=== PATIENT | male | born 1970 | race Caucasian/White ===

== ENCOUNTER 2017-04-23 11:28 | Emergency (ER) | payer OTHER ==
[2017-04-23 11:29] VITALS: BP 187/121; PULSE 80; RESP 16; TEMP 98.2; O2SAT 100
[2017-04-23] MEDS ORDERED: LISI-515 PO (12:27)
[2017-04-23] MEDS ORDERED: TOPI100 PO (12:27)
[2017-04-23] MEDS ORDERED: SERO400T PO (12:27)
--- NOTE | 2017-04-23 12:29 | PD ---
HPI Chief Complaint: Hypertension Time Seen by Provider: 12:22 Travel History International Travel<30 days: No Contact w/Intl Traveler<30days: No Traveled to known affect area: No History of Present Illness HPI 46-year-old male presents to emergency department, [facility], for increased blood pressure reading. He went to the [facility] to get his blood pressure medications and medications for his bipolar disorder refilled and they sent him to the ER because of his elevated blood pressure. He is asymptomatic. He denies chest pain, shortness of breath, headache, lightheadedness, dizziness, near syncopal, nausea, vomiting, blurred vision, diaphoresis. He last took his blood pressure medication 6 days ago. He takes hydrochlorothiazide 12.5 mg/ lisinopril 20 mg 2 tablets at hour of sleep; this was verified by calling the [facility]. No known aggravating or relieving factors. Primary care provider is [facility]. No known allergies. History of hypertension and bipolar disorder. Has no other medical complaints. No other modifying factors or associated signs or symptoms. PFSH Past Medical History Bipolar Disorder: Yes Cardiovascular Problems: Yes (HTN) Hypertension: Yes Psychiatric: Yes Tetanus Vaccination: < 5 Years Past Surgical History Surgical History: No Previous Surgery Social History Alcohol Use: No Tobacco Use: No Substance Use: No Allergies-Medications (Allergen,Severity, Reaction): Coded Allergies: No Known Allergies (Unverified , 04/23/17) Reported Meds & Prescriptions Reported Meds & Active Scripts Active Lisinopril-Hctz 20-12.5 mg Tab (Lisinopril/Hydrochlorothiazide) 20 Mg-12.5 Mg Tablet 2 Tab PO HS 30 Days Reported Topamax (Topiramate) 100 Mg Tab 100 Mg PO HS Lisinopril 20 Mg Tab 20 Mg PO BID Seroquel (Quetiapine Fumarate) 400 Mg Tab 400 Mg PO HS Review of Systems Except as stated in HPI: all other systems reviewed are Neg Physical Exam Narrative GENERAL: Well-nourished, well-developed male patient, in no acute distress SKIN: Warm and dry. HEAD: Atraumatic. Normocephalic. EYES: Pupils equal and round. No scleral icterus. No injection or drainage. ENT: Mucosa pink and moist. Airway patent. NECK: Trachea midline. CARDIOVASCULAR: Regular rate and rhythm. No murmur appreciated. RESPIRATORY: No accessory muscle use. Breath sounds clear and equal bilaterally. No retractions or tachypnea. GASTROINTESTINAL: Abdomen soft, non-tender, nondistended. Positive bowel sounds. No hepato-splenomegaly, or palpable masses. No guarding. MUSCULOSKELETAL: No obvious deformities. No clubbing. No cyanosis. No edema. NEUROLOGICAL: Awake and alert. Oriented 3. No obvious cranial nerve deficits. Motor grossly within normal limits. Normal speech. PSYCHIATRIC: Appropriate mood and affect; insight and judgment normal. Data Data Last Documented VS Vital Signs Date Time Temp Pulse Resp B/P (MAP) Pulse Ox O2 Delivery O2 Flow Rate FiO2 04/23/17 11:29 98.2 80 16 187/121 (143) 100 Orders Orders Hydrochlorothiazide (Hydrodiuril) (04/23/17 12:45) Lisinopril (Prinivil) (04/23/17 12:45) MDM Medical Decision Making Medical Screen Exam Complete: Yes Emergency Medical Condition: Yes Medical Record Reviewed: Yes Differential Diagnosis Hypertension, high blood pressure reading, medication refill, medical clearance Narrative Course 46-year-old male with history of hypertension sent from the [facility] with a high blood pressure reading. He last took his medication 6 days ago. He went to the [facility] for medication refills but they told him he needs to come to the ER to get his blood pressure lowered. He is asymptomatic. I spoke on the phone with the [facility] pharmacy and verified his medication dosage. Lisinopril 25 mg and hydrochlorothiazide 40 mg ordered and administered in the ER. Patient provided a prescription for medication refill for lisinopril/ hydrochlorothiazide. Instructed patient to follow-up at [facility]. Instructed patient to follow up with primary care provider. Patient verbalizes understanding and agreement with treatment plan. Patient is medically cleared and stable for discharge. Discussed reasons to return to the emergency department. Patient agrees with treatment plan. The patients vital signs are stable and the patient is stable for outpatient follow-up and treatment. Patient discharged home, stable and in no acute distress. Diagnosis Primary Impression: High blood pressure Qualified Codes: I10 - Essential (primary) hypertension Referrals: Primary Care Physician Patient Instructions: General Instructions, Hypertension (ED), Medication Refill, ED Additional Instructions: Take blood pressure medications as prescribed Follow-up with your primary care provider Return to the emergency department immediately with symptoms of increased blood pressure, taken only if you are experiencing severe chest pain, severe headache , confusion, blurred vision, nausea and vomiting, shortness of breath, seizures Med/Other Pt SpecificInfo: Prescription(s) given Scripts Lisinopril/Hydrochlorothiazide (Lisinopril-Hctz 20-12.5 mg Tab) 20 Mg-12.5 Mg Tablet 2 TAB PO HS for Blood Pressure Management for 30 Days Prov: Haleigh Moore 04/23/17 Disposition: 01 DISCHARGE HOME Condition: Stable Haleigh Moore Apr 23, 2017 12:29
[2017-04-23] MEDS ORDERED: LISINOPRIL 20 MG TAB PO SCH (12:45)
[2017-04-23] MEDS ORDERED: HYDROCHLOROTHIAZIDE 25 MG TAB PO ONE (12:45)
[2017-04-23] MEDS ORDERED: LISI20TA PO (12:47)
[2017-04-23 13:58] VITALS: BP 161/104
[2017-04-23 13:59] VITALS: BP 165/108; PULSE 68; RESP 20
== END 2017-04-23 14:07 | disposition home or self-care (01) ==
LOC: NEPD 11:28
DX: I10 Essential (primary) hypertension (principal); F31.9 Bipolar disorder, unspecified; Z79.899 Other long term (current) drug therapy
CPT/HCPCS: 99283

== ENCOUNTER 2017-05-03 04:31 | Observation (INO) | payer OTHER ==
[~2017-05-03] VITALS: Ht 175.3 cm; Wt 104.5 kg
[2017-05-03] VITALS (7 sets, daily range): BP systolic 106–144; BP diastolic 64–90; PULSE 82–110; RESP 14–20; TEMP 97.5–98.1; O2SAT 98–99
[~2017-05-03 04:31] MED LIST: LISI-515 PO; LISI20TA PO; SERO400T PO; TOPI100 PO
[2017-05-03] MEDS ORDERED: VIAG50TA PO (05:04)
[2017-05-03] MEDS ORDERED: GERD (05:04)
[2017-05-03] MEDS ORDERED: SODIUM CHLORIDE 0.9% FLUSH 10 ML FLUSH IVF PRN (05:15)
--- NOTE | 2017-05-03 05:28 | RADRPT ---
EXAM DATE/TIME: 05/03/2017 05:09 [place] COMPARISON: No previous studies available for comparison. INDICATIONS : Elevated BP and dizziness x 1 day MEDICAL HISTORY : Hypertension. SURGICAL HISTORY : None. ENCOUNTER: Initial ACUITY: 1 day PAIN SCORE: 8/10 LOCATION: Bilateral chest FINDINGS: A single view of the chest demonstrates the lungs to be symmetrically aerated without evidence of mas s, infiltrate or effusion. The cardiomediastinal contours are unremarkable. Osseous structures are intact. CONCLUSION: The lungs are clear. Manuel Deluca MD on May 03, 2017 at 5:27 Board Certified Radiologist. This report was verified electronically.
[2017-05-03 05:36] LABS: AUTOMATED NEUTROPHIL # 5.5 TH/MM3 (1.8-7.7); BASOPHIL % 0.5 % (0.0-2.0); EOSINOPHIL # 0.4 TH/MM3 (0-0.4); EOSINOPHIL % 5.1 % (0.0-4.0); HEMATOCRIT 38.5 % (39.0-51.0); HEMOGLOBIN 12.9 GM/DL (13.0-17.0); LYMPH % 24.4 % (9.0-44.0); LYMPHOCYTE # 2.1 TH/MM3 (1.0-4.8); MEAN CELL VOLUME 85.1 FL (80.0-100.0); MEAN CORPUSCULAR HEMOGLOBIN 28.5 PG (27.0-34.0); MEAN CORPUSCULAR HGB CONC 33.5 % (32.0-36.0); MEAN PLATELET VOLUME 8.1 FL (7.0-11.0); MONO % 5.1 % (0.0-8.0); MONOCYTE # 0.4 TH/MM3 (0-0.9); NEUT % 64.9 % (16.0-70.0); PLATELET COUNT 232 TH/MM3 (150-450); RED BLOOD COUNT 4.52 MIL/MM3 (4.50-5.90); RED CELL DISTRIBUTION WIDTH 17.8 % (11.6-17.2); WHITE BLOOD COUNT 8.5 TH/MM3 (4.0-11.0)
[2017-05-03 05:49] LABS: ALBUMIN 3.5 GM/DL (3.4-5.0); ALT (GPT) 33 U/L (12-78); AST (GOT) 29 U/L (15-37); BLOOD UREA NITROGEN 20 MG/DL (7-18); CALCIUM 8.7 MG/DL (8.5-10.1); CHLORIDE 105 MEQ/L (98-107); CREATININE 1.26 MG/DL (0.60-1.30); GLOMERULAR FILTRATION RATE 61 ML/MIN (>89); GLUCOSE,RANDOM 147 MG/DL (74-106); MAGNESIUM 1.8 MG/DL (1.5-2.5); PROTHROMBIN TIME - PATIENT 10.2 SEC (9.8-11.6); SODIUM (NA) 136 MEQ/L (136-145)
--- NOTE | 2017-05-03 05:50 | PD ---
HPI Chief Complaint: Dizziness Time Seen by Provider: 04:51 Travel History International Travel<30 days: No Contact w/Intl Traveler<30days: No Traveled to known affect area: No History of Present Illness HPI 46 y/o male presents with feeling lightheaded and having chest pressure this evening. He states that he has never had this before. He states he thinks he has had a stress test a couple years ago that was normal but he does not remember the exact date. He denies taking an aspirin yet today. He states he feels worse when he moves around. He denies other modifying factors. Duration is couple of hours. 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 [facility] He denies specific modifying factors. He denies any other concurrent complaints. PFSH Past Medical History Bipolar Disorder: Yes Cardiovascular Problems: Yes Diminished Hearing: No Hypertension: Yes Psychiatric: Yes Social History Alcohol Use: Yes ([facility]) Tobacco Use: No Substance Use: No Allergies-Medications (Allergen,Severity, Reaction): Coded Allergies: No Known Allergies (Unverified , 05/03/17) Reported Meds & Prescriptions Reported Meds & Active Scripts Active Lisinopril-Hctz 20-12.5 mg Tab (Lisinopril/Hydrochlorothiazide) 20 Mg-12.5 Mg Tablet 2 Tab PO HS 30 Days Reported [Gerd] Viagra (Sildenafil Citrate) 50 Mg Tab 50 Mg PO DAILY PRN Topamax (Topiramate) 100 Mg Tab 100 Mg PO HS Seroquel (Quetiapine Fumarate) 400 Mg Tab 400 Mg PO HS Review of Systems Except as stated in HPI: all other systems reviewed are Neg Physical Exam Narrative GENERAL: 46-year-old male in no apparent distress SKIN: Focused skin assessment warm/dry. HEAD: Atraumatic. Normocephalic. EYES: Pupils equal and round. No scleral icterus. No injection or drainage. ENT: No nasal bleeding or discharge. Mucous membranes pink and moist. NECK: Trachea midline. No JVD. CARDIOVASCULAR: Regular rate and rhythm. No murmur appreciated. RESPIRATORY: No accessory muscle use. Clear to auscultation. Breath sounds equal bilaterally. GASTROINTESTINAL: Abdomen soft, non-tender, nondistended. Hepatic and splenic margins not palpable. MUSCULOSKELETAL: No obvious deformities. No clubbing. No cyanosis. No edema. NEUROLOGICAL: Awake and alert. No obvious cranial nerve deficits. Motor grossly within normal limits. Normal speech. PSYCHIATRIC: Appropriate mood and affect; insight and judgment normal. Data Data Last Documented VS Vital Signs Date Time Temp Pulse Resp B/P (MAP) Pulse Ox O2 Delivery O2 Flow Rate FiO2 05/03/17 04:58 108 98 Room Air 05/03/17 04:58 14 106/68 (81) 107/64 (78) 05/03/17 04:42 97.5 Orders Orders Electrocardiogram (05/03/17 05:04) Ckmb (Isoenzyme) Profile (05/03/17 05:04) Complete Blood Count With Diff (05/03/17 05:04) Comprehensive Metabolic Panel (05/03/17 05:04) Magnesium (Mg) (05/03/17 05:04) Prothrombin Time / Inr (Pt) (05/03/17 05:04) Act Partial Throm Time (Ptt) (05/03/17 05:04) Troponin I (05/03/17 05:04) Lipase (05/03/17 05:04) Chest, Single Ap (05/03/17 05:04) Ecg Monitoring (05/03/17 05:04) Bilateral Bp Monitoring (05/03/17 05:04) Iv Access Insert/Monitor (05/03/17 05:04) Oximetry (05/03/17 05:04) Sodium Chloride 0.9% Flush (Ns Flush) (05/03/17 05:15) CKMB (05/03/17 05:15) CKMB% (05/03/17 05:15) Drug Screen, Random Urine (05/03/17 06:09) Sodium Chlor 0.9% 1000 Ml Inj (Ns 1000 M (05/03/17 06:15) Admit Order (Ed Use Only) (05/03/17 06:17) Labs Laboratory Tests Test 05/03/17 05:15 White Blood Count 8.5 TH/MM3 Red Blood Count 4.52 MIL/MM3 Hemoglobin 12.9 GM/DL Hematocrit 38.5 % Mean Corpuscular Volume 85.1 FL Mean Corpuscular Hemoglobin 28.5 PG Mean Corpuscular Hemoglobin Concent 33.5 % Red Cell Distribution Width 17.8 % Platelet Count 232 TH/MM3 Mean Platelet Volume 8.1 FL Neutrophils (%) (Auto) 64.9 % Lymphocytes (%) (Auto) 24.4 % Monocytes (%) (Auto) 5.1 % Eosinophils (%) (Auto) 5.1 % Basophils (%) (Auto) 0.5 % Neutrophils # (Auto) 5.5 TH/MM3 Lymphocytes # (Auto) 2.1 TH/MM3 Monocytes # (Auto) 0.4 TH/MM3 Eosinophils # (Auto) 0.4 TH/MM3 Basophils # (Auto) 0.0 TH/MM3 CBC Comment DIFF FINAL Differential Comment Prothrombin Time 10.2 SEC Prothromb Time International Ratio 1.0 RATIO Activated Partial Thromboplast Time 29.9 SEC Blood Urea Nitrogen 20 MG/DL Creatinine 1.26 MG/DL Random Glucose 147 MG/DL Total Protein 6.6 GM/DL Albumin 3.5 GM/DL Calcium Level 8.7 MG/DL Magnesium Level 1.8 MG/DL Alkaline Phosphatase 58 U/L Aspartate Amino Transf (AST/SGOT) 29 U/L Alanine Aminotransferase (ALT/SGPT) 33 U/L Total Bilirubin 0.2 MG/DL Sodium Level 136 MEQ/L Potassium Level 3.6 MEQ/L Chloride Level 105 MEQ/L Carbon Dioxide Level 21.0 MEQ/L Anion Gap 10 MEQ/L Estimat Glomerular Filtration Rate 61 ML/MIN Total Creatine Kinase 992 U/L Creatine Kinase MB 21.3 NG/ML Creatine Kinase MB % 2.1 % Troponin I 0.02 NG/ML Lipase 123 U/L [facility] Medical Decision Making Medical Screen Exam Complete: Yes Emergency Medical Condition: Yes Medical Record Reviewed: Yes (pmh confirmed) Interpretation(s) CBC & BMP Diagram 05/03/17 05:15 Total Protein 6.6, Albumin 3.5, Calcium Level 8.7, Magnesium Level 1.8, Alkaline Phosphatase 58, Aspartate Amino Transf (AST/SGOT) 29, Alanine Aminotransferase (ALT/SGPT) 33, Total Bilirubin 0.2 cxr no acute Differential Diagnosis musculoskeletal, MO, gasritis, strain.... Narrative Course will check labs, cxr and dose with aspirin and reevaluate ed workup with mild rhabdomyolysis, urine drug panel added on, will dose with ivf, index normal, will place [facility] observation Diagnosis Primary Impression: Chest pain Qualified Codes: R07.9 - Chest pain, unspecified Admitting Information Admitting Physician Requests: Observation Neema Lynch MD May 03, 2017 05:50
[2017-05-03 06:03] LABS: ALKALINE PHOSPHATASE 58 U/L (45-117); TOTAL BILIRUBIN ADULT 0.2 MG/DL (0.2-1.0); TOTAL PROTEIN 6.6 GM/DL (6.4-8.2); TROPONIN I 0.02 NG/ML (0.02-0.05)
[2017-05-03] MEDS ORDERED: SODIUM CHLOR 0.9% 1000 ML INJ 1,000 ML IV ONE ×2 (06:15→12:15)
[2017-05-03] MEDS ORDERED: SODIUM CHLORIDE 0.9% FLUSH 10 ML FLUSH IV FLUSH PRN (06:30)
[2017-05-03] MEDS ORDERED: KETOROLAC TROMETHAMINE 30 MG/ML (IVP) VIAL IV PUSH ONE (06:30)
[2017-05-03] MEDS ORDERED: SODIUM CHLORIDE 0.9% FLUSH 10 ML FLUSH IV FLUSH SCH (09:00)
[2017-05-03 10:11] LABS: TROPONIN I 0.03 NG/ML (0.02-0.05)
[2017-05-03] MEDS ORDERED: PANTOPRAZOLE SOD 20 MG DELAYED RELEASE TAB PO SCH (12:00)
[2017-05-03] MEDS ORDERED: SODIUM CHLOR 0.9% 1000 ML INJ 1,000 ML IV SCH (12:00)
--- NOTE | 2017-05-03 12:12 | HHI.HP ---
[facility] Admission Diagnosis Chest pain Diagnoses: Chief Complaint: Chest pain Travel History International Travel<30 Days: No Contact w/Intl Traveler <30 Da: No Traveled to Known Affected Are: No History of Present Illness This is a pleasant 46-year-old male patient with a known medical history of hypertension and bipolar disorder who presented to the ED with complaints of chest pain. Patient states the chest pain started last evening around midnight , roughly 30 minutes after sexual activity, occurring in the midsternal chest area, denies any radiation of the pain, characterized the pain as heartburn and tight in nature, admits to associated shortness of breath, dizziness and nausea , with one bout of vomiting in the ED, denies any diaphoresis. Patient states that he has never felt this type of pain before. Patient states that the pain lasted for hours until he arrived to the ED, was given Toradol with minimal relief. Patient states that he did take his blood pressure last evening with an elevated diastolic reading of 120. He does admit to associated headache. It should be noted that patient took an [id number] Viagra, called MiracleZen, around 1630 yesterday afternoon. States he has been taking this on and off for the last several years. He also takes Viagra at the CT only gives him 13 pills every 3 months. Patient denies any recent illness including fever , chills, cough, headache, shortness of breath, abdominal pain, diarrhea or dysuria. At the time of assessment patient states that chest pain has now resolved. Patient does admit to undergoing a cardiac stress test a couple years ago for complaints of chest pain, which was reportedly negative. 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 Chest x-ray upon presentation negative. EKG showing sinus tachycardia, no ST changes. CPK upon arrival was 992. Troponins 0.02, 0.03 and awaiting third enzyme. Review of Systems Constitutional: DENIES: Diaphoretic episodes, Fatigue, Fever, Chills Eyes: DENIES: Blurred vision, Diplopia Respiratory: COMPLAINS OF: Shortness of breath, DENIES: Cough, Sputum production Cardiovascular: COMPLAINS OF: Chest pain, Palpitations Gastrointestinal: COMPLAINS OF: Nausea, Vomiting, DENIES: Abdominal pain, Black stools, Bloody stools, Constipation, Diarrhea Genitourinary: COMPLAINS OF: Sexual dysfunction Musculoskeletal: DENIES: Joint pain Neurologic: DENIES: Abnormal gait Psychiatric: COMPLAINS OF: Anxiety Except as stated in HPI: all other systems reviewed are Neg Past Family Social History Past Medical History Hypertension Bipolar disorder Past Surgical History Denies any history of surgeries. Reported Medications Active Lisinopril-Hctz 20-12.5 mg Tab (Lisinopril/Hydrochlorothiazide) 20 Mg-12.5 Mg Tablet 2 Tab PO HS 30 Days Reported [Gerd] Viagra (Sildenafil Citrate) 50 Mg Tab 50 Mg PO DAILY PRN Topamax (Topiramate) 100 Mg Tab 100 Mg PO HS Seroquel (Quetiapine Fumarate) 400 Mg Tab 400 Mg PO HS Allergies: Coded Allergies: No Known Allergies (Unverified , 05/03/17) Active Ordered Medications Current Medications Medications (Trade) Dose Ordered Sig/Tiffany Route Start Time Stop Time Status Last Admin (NS Flush) 2 ml UNSCH PRN IVF 05/03/17 05:15 (NS Flush) 2 ml UNSCH PRN IV FLUSH 05/03/17 06:30 (NS Flush) 2 ml BID IV FLUSH 05/03/17 09:00 05/03/17 10:07 Family History Paternal medical history significant for CT in his 60s, has recently underwent a CABG. Mother has a history of diabetes. Social History Patient denies any current or previous tobacco use, denies any alcohol use, denies any illicit drug use. Physical Exam Vital Signs Vital Signs Date Time Temp Pulse Resp B/P (MAP) Pulse Ox O2 Delivery O2 Flow Rate FiO2 05/03/17 11:28 98.1 92 20 144/90 (108) 99 05/03/17 11:23 82 05/03/17 06:30 99 05/03/17 06:28 99 19 111/71 (84) 99 Room Air 05/03/17 04:58 108 98 Room Air 05/03/17 04:58 104 14 106/68 (81) 98 Room Air 107/64 (78) 05/03/17 04:42 97.5 110 18 143/69 (93) 99 Physical Exam GENERAL: Well-developed, well-nourished male patient in NAD. SKIN: Warm and dry. No rash. HEAD: Normocephalic. Atraumatic. EYES: Pupils equal and round. No scleral icterus. No injection or drainage. ENT: No nasal bleeding or discharge. Mucous membranes pink and moist. NECK: Supple. Trachea midline. CARDIOVASCULAR: Regular rate and rhythm. S1, S2 noted. No murmur appreciated. No chest pain to palpation. RESPIRATORY: No accessory muscle use. Clear to auscultation. Breath sounds equal bilaterally. GASTROINTESTINAL: Abdomen soft, non-tender, nondistended. Normoactive bowel sounds x4. MUSCULOSKELETAL: No obvious deformities. Extremities without clubbing, cyanosis , or edema. NEUROLOGICAL: Awake and alert. No obvious cranial nerve deficits. Motor grossly within normal limits. 5/5 muscle strength in bilateral upper and lower extremities. Normal speech. PSYCHIATRIC: Appropriate mood and affect; insight and judgment normal. Laboratory Laboratory Tests Test 05/03/17 05:15 05/03/17 09:23 White Blood Count 8.5 Red Blood Count 4.52 Hemoglobin 12.9 Hematocrit 38.5 Mean Corpuscular Volume 85.1 Mean Corpuscular Hemoglobin 28.5 Mean Corpuscular Hemoglobin Concent 33.5 Red Cell Distribution Width 17.8 Platelet Count 232 Mean Platelet Volume 8.1 Neutrophils (%) (Auto) 64.9 Lymphocytes (%) (Auto) 24.4 Monocytes (%) (Auto) 5.1 Eosinophils (%) (Auto) 5.1 Basophils (%) (Auto) 0.5 Neutrophils # (Auto) 5.5 Lymphocytes # (Auto) 2.1 Monocytes # (Auto) 0.4 Eosinophils # (Auto) 0.4 Basophils # (Auto) 0.0 CBC Comment DIFF FINAL Differential Comment Prothrombin Time 10.2 Prothromb Time International Ratio 1.0 Activated Partial Thromboplast Time 29.9 Blood Urea Nitrogen 20 Creatinine 1.26 Random Glucose 147 Total Protein 6.6 Albumin 3.5 Calcium Level 8.7 Magnesium Level 1.8 Alkaline Phosphatase 58 Aspartate Amino Transf (AST/SGOT) 29 Alanine Aminotransferase (ALT/SGPT) 33 Total Bilirubin 0.2 Sodium Level 136 Potassium Level 3.6 Chloride Level 105 Carbon Dioxide Level 21.0 Anion Gap 10 Estimat Glomerular Filtration Rate 61 Total Creatine Kinase 992 830 Creatine Kinase MB 21.3 17.9 Creatine Kinase MB % 2.1 2.2 Troponin I 0.02 0.03 Lipase 123 Result Diagram: 05/03/17 0515 05/03/17 0515 Imaging Last Impressions Chest X-Ray 05/03/17 0504 Signed Impressions: Service Date/Time: Wednesday, May 03, 2017 05:09 - CONCLUSION: The lungs are clear. Manuel Deluca MD Septic Shock Reassessment Septic shock perfusion: reassessment completed Caprini VTE Risk Assessment Caprini VTE Risk Assessment: No/Low Risk (score <= 1) Caprini Risk Assessment Model Point Value = 1 Point Value = 2 Point Value = 3 Point Value = 5 Age 41-60 Minor surgery BMI > 25 kg/m2 Swollen legs Varicose veins or History of unexplained or recurrent spontaneous Oral contraceptives or hormone replacement Sepsis (< 1 month) Serious lung disease, including pneumonia (< 1 month) Abnormal pulmonary function Acute myocardial infarction Congestive heart failure (< 1 month) History of inflammatory bowel disease Medical patient at bed rest Age 61-74 Arthroscopic surgery Major open surgery (> 45 min) Laparoscopic surgery (> 45 min) Malignancy Confined to bed (> 72 hours) Immobilizing plaster cast Central venous access Age >= 75 History of VTE Family history of VTE Factor V Leiden Prothrombin [id number] Lupus anticoagulant Anticardiolipin antibodies Elevated serum homocysteine Heparin-induced thrombocytopenia Other congenital or acquired thrombophilia Stroke (< 1 month) Elective arthroplasty Hip, pelvis, or leg fracture Acute spinal cord injury (< 1 month) Prophylaxis Regimen Total Risk Factor Score Risk Level Prophylaxis Regimen 0-1 Low Early ambulation 2 Moderate Order ONE of the following: *Sequential Compression Device (SCD) *Heparin 5000 units SQ BID 3-4 Higher Order ONE of the following medications: *Heparin 5000 units SQ TID *Enoxaparin/Lovenox 40 mg SQ daily (WT < 150 kg, CrCl > 30 mL/min) *Enoxaparin/Lovenox 30 mg SQ daily (WT < 150 kg, CrCl > 10-29 mL/min) *Enoxaparin/Lovenox 30 mg SQ BID (WT < 150 kg, CrCl > 30 mL/min) AND/OR *Sequential Compression Device (SCD) 5 or more Highest Order ONE of the following medications: *Heparin 5000 units SQ TID (Preferred with Epidurals) *Enoxaparin/Lovenox 40 mg SQ daily (WT < 150 kg, CrCl > 30 mL/min) *Enoxaparin/Lovenox 30 mg SQ daily (WT < 150 kg, CrCl > 10-29 mL/min) *Enoxaparin/Lovenox 30 mg SQ BID (WT < 150 kg, CrCl > 30 mL/min) AND *Sequential Compression Device (SCD) Assessment and Plan Problem List: (1) Rhabdomyolysis ICD Code: M62.82 - Rhabdomyolysis (2) Chest pain ICD Code: R07.9 - Chest pain, unspecified Status: Acute (3) Hypertension ICD Code: I10 - Essential (primary) hypertension Assessment and Plan This is a pleasant 46-year-old male patient with a known medical history of hypertension and bipolar disorder who presented to the ED with complaints of chest pain. Chest pain Patient has been admitted to the chest pain center for observation. Serial EKGs and serial troponins have been ordered for ruling out purposes. Troponin 2 negative and flat, awaiting third enzyme. Follow. EKG reviewed showing sinus tachycardia, no ST changes to indicate ischemia. Continue cardiac telemetry, monitor for any arrhythmias. No arrhythmias overnight. CPK elevated on presentation 992, 830, awaiting third drop. Was given 1 L NS bolus in ED. Continue IV fluids. Will order an additional 1 L NS bolus. Chest x-ray reviewed showing no acute disease. CBC and BMP reviewed, essentially unremarkable. Chest pain has now resolved. Patient is stable at this time. Hypertension, chronic versus accelerated hypertension: BP mildly elevated on presentation, restarted on home medications, continue to monitor BP trends. Rhabdomyolysis: CPK 992, 830, follow trend. Was given 1 L NS bolus in ED. Continue IV fluids. Will order an additional 1 L NS bolus. History of bipolar disorder, continue home Seroquel. History of migraines: Continue home Topamax. DVT prophylaxis: SCDs. Problem Qualifiers (1) Chest pain: Qualified Codes: R07.9 - Chest pain, unspecified Corine Clarke LEONIDAS May 03, 2017 12:12
--- NOTE | 2017-05-03 13:01 | PD.CARD.PN ---
Subjective Subjective Remarks Patient discussed with nurse practitioner, medical records reviewed, and seen and examined personally. 46-year-old man with a history of hypertension [facility]. Immediately after intercourse last night he developed chest discomfort, severe shortness of breath (like suffocating), dizziness with some visual changes- spots in front of eyes, and subsequently nausea and vomiting. He describes the chest pain as heartburn but this is unlike anything he has had before. 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 He gets Viagra from the [facility] but has a limited supply. As a result he has been buying an [id number] mixture called miricoven at the liquor store. He denies heavy alcohol abuse, any drug use other than this drug prior to the episode. 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 He is followed at the [facility] for hypertension and after the episode occurred he checked his blood pressure and found a diastolic of 120. He is currently feeling back to normal Objective Medications Current Medications Medications (Trade) Dose Ordered Sig/Tiffany Route Start Time Stop Time Status Last Admin (NS Flush) 2 ml UNSCH PRN IVF 05/03/17 05:15 (NS Flush) 2 ml UNSCH PRN IV FLUSH 05/03/17 06:30 (NS Flush) 2 ml BID IV FLUSH 05/03/17 09:00 05/03/17 10:07 Sodium Chloride 1,000 ml @ 100 mls/hr Q10H IV 05/03/17 12:00 (Protonix) 20 mg DAILY PO 05/03/17 12:00 (Topamax) 100 mg HS PO 05/03/17 21:00 (SEROquel) 400 mg HS PO 05/03/17 21:00 Sodium Chloride 1,000 ml @ 999 mls/hr BOLUS ONCE IV 05/03/17 12:15 05/03/17 13:15 (Prinivil) 40 mg HS PO 05/03/17 21:00 (Hydrodiuril) 25 mg HS PO 05/03/17 21:00 Vital Signs / I&O Vital Signs Date Time Temp Pulse Resp B/P (MAP) Pulse Ox O2 Delivery O2 Flow Rate FiO2 05/03/17 11:28 98.1 92 20 144/90 (108) 99 05/03/17 11:23 82 05/03/17 06:30 99 05/03/17 06:28 99 19 111/71 (84) 99 Room Air 05/03/17 04:58 108 98 Room Air 05/03/17 04:58 104 14 106/68 (81) 98 Room Air 107/64 (78) 05/03/17 04:42 97.5 110 18 143/69 (93) 99 I/O 05/02/17 05/02/17 05/02/17 05/03/17 05/03/17 05/03/17 07:00 15:00 23:00 07:00 15:00 23:00 Intake Total 1000 ml Balance 1000 ml Intake IV Total 1000 ml Physical Exam GENERAL: Well-nourished well-developed somewhat muscular SKIN: Warm and dry. Profuse tattoos HEAD: Atraumatic. Normocephalic. EYES: Pupils equal and round. Left conjunctiva slightly injected with a droopy lid on the left side. (He has not noticed this and denies any trauma) ENT: No nasal bleeding or discharge. Mucous membranes pink and moist. NECK: Trachea midline. No JVD. CARDIOVASCULAR: Regular rate and rhythm. RESPIRATORY: No accessory muscle use. Clear to auscultation. Breath sounds equal bilaterally. GASTROINTESTINAL: Abdomen soft, non-tender, nondistended. Hepatic and splenic margins not palpated Laboratory Laboratory Tests Test 05/03/17 05:15 05/03/17 09:23 05/03/17 12:23 White Blood Count 8.5 TH/MM3 Red Blood Count 4.52 MIL/MM3 Hemoglobin 12.9 GM/DL Hematocrit 38.5 % Mean Corpuscular Volume 85.1 FL Mean Corpuscular Hemoglobin 28.5 PG Mean Corpuscular Hemoglobin Concent 33.5 % Red Cell Distribution Width 17.8 % Platelet Count 232 TH/MM3 Mean Platelet Volume 8.1 FL Neutrophils (%) (Auto) 64.9 % Lymphocytes (%) (Auto) 24.4 % Monocytes (%) (Auto) 5.1 % Eosinophils (%) (Auto) 5.1 % Basophils (%) (Auto) 0.5 % Neutrophils # (Auto) 5.5 TH/MM3 Lymphocytes # (Auto) 2.1 TH/MM3 Monocytes # (Auto) 0.4 TH/MM3 Eosinophils # (Auto) 0.4 TH/MM3 Basophils # (Auto) 0.0 TH/MM3 CBC Comment DIFF FINAL Differential Comment Prothrombin Time 10.2 SEC Prothromb Time International Ratio 1.0 RATIO Activated Partial Thromboplast Time 29.9 SEC Blood Urea Nitrogen 20 MG/DL Creatinine 1.26 MG/DL Random Glucose 147 MG/DL Total Protein 6.6 GM/DL Albumin 3.5 GM/DL Calcium Level 8.7 MG/DL Magnesium Level 1.8 MG/DL Alkaline Phosphatase 58 U/L Aspartate Amino Transf (AST/SGOT) 29 U/L Alanine Aminotransferase (ALT/SGPT) 33 U/L Total Bilirubin 0.2 MG/DL Sodium Level 136 MEQ/L Potassium Level 3.6 MEQ/L Chloride Level 105 MEQ/L Carbon Dioxide Level 21.0 MEQ/L Anion Gap 10 MEQ/L Estimat Glomerular Filtration Rate 61 ML/MIN Total Creatine Kinase 992 U/L 830 U/L Creatine Kinase MB 21.3 NG/ML 17.9 NG/ML Creatine Kinase MB % 2.1 % 2.2 % Troponin I 0.02 NG/ML 0.03 NG/ML Lipase 123 U/L Imaging Last 24 hours Impressions Chest X-Ray 05/03/17 0504 Signed Impressions: Service Date/Time: Wednesday, May 03, 2017 05:09 - CONCLUSION: The lungs are clear. Manuel Deluca MD Assessment and Plan Problem List: (1) Chest pain ICD Codes: R07.9 - Chest pain, unspecified Status: Acute Plan: He has ruled out with 3 troponins and EKGs however further testing would be appropriate. Concern is exercise regarding his elevated CPK. If he had reliable outpatient follow-up he would be deferred for outpatient however he will be evaluated with a Lexiscan prior to discharge with [facility] and issues of impotence. (2) Rhabdomyolysis ICD Codes: M62.82 - Rhabdomyolysis Status: Acute (3) Hypertension ICD Codes: I10 - Essential (primary) hypertension Status: Chronic Problem Qualifiers (1) Chest pain: Qualified Codes: R07.9 - Chest pain, unspecified Clarence Cherry MD May 03, 2017 13:01
[2017-05-03 13:09] LABS: TROPONIN I 0.03 NG/ML (0.02-0.05)
--- NOTE | 2017-05-03 13:16 | EKG ---
Date Performed: 05/03/2017 Time Performed: 09:21:29 PTAGE: 46 years EKG: Sinus rhythm NONSPECIFIC T-WAVE ABNORMALITY BORDERLINE ECG NO SIG CHANGE PREVIOUS TRACING : 05/03/2017 04.53 DOCTOR: Clarence Cherry Interpretating Date/Time 05/03/2017 13:14:24
--- NOTE | 2017-05-03 13:17 | EKG ---
Date Performed: 05/03/2017 Time Performed: 04:53:54 PTAGE: 46 years EKG: SINUS TACHYCARDIA NS STT CHANGES ABNORMAL ECG NO PREVIOUS TRACING DOCTOR: Clarence Cherry Interpretating Date/Time 05/03/2017 13:16:20
[2017-05-03 14:12] LABS: CHOLESTEROL 190 MG/DL (120-200); TRIGLYCERIDES 453 MG/DL (42-150)
[2017-05-03 14:14] LABS: CHOLESTEROL/ HDL RATIO 4.67 RATIO; HDL CHOLESTEROL 40.6 MG/DL (40.0-60.0)
[2017-05-03] MEDS ORDERED: REGADENOSON INJ 0.4 MG/5 ML SYR ONE (15:21)
--- NOTE | 2017-05-03 16:47 | TR ---
Date Performed: 05/03/2017 Time Performed: 15:33:40 DOCTOR: Clarence Cherry DRUG LIST: CLINICAL HISTORY: REASON FOR TEST: REASON FOR ENDING: OBSERVATION: CONCLUSION: Lexiscan stress test was performed under standard four minute protocol. Radionuclide was injected one minute prior to ending the test. No electrocardiographic abormalities were present to suggest ischemia. Nuclear imaging and interpretation are pending. COMMENTS:
--- NOTE | 2017-05-03 18:17 | RADRPT ---
EXAM DATE/TIME: 05/03/2017 15:05 [facility] COMPARISON: No previous studies available for comparison. INDICATIONS : Chest pain. Angina. DOSE: 35.0 mCi Tc99m Myoview at stress. 11.0 mCi Tc99m Myoview at rest. 0.4 mg Lexiscan STRESS SYMPTOMS: None. EJECTION FRACTION: 58% MEDICAL HISTORY : Hypertension. SURGICAL HISTORY : Total knee replacement, right. ENCOUNTER: Initial ACUITY: 1 day PAIN SCALE: 0/10 LOCATION: Substernal chest TECHNIQUE: The patient underwent pharmacologic stress with infusion of prescribed dose. Continuous ECG tracing was monitored during stress. Gated SPECT imaging was performed after stress and conventional SPECT i maging was performed at rest. The examination was performed on a SPECT/CT scanner, both attenuation and non-corrected datasets were reviewed. There is motion artifact present. FINDINGS: DISTRIBUTION: The maximum perfused segment at stress is in the lateral wall. PERFUSION STUDY: There is decreased perfusion of mild severity, suspected seen along the anterior wall on stress imagi ng which is most likely artifactual due to significant motion. There is no obvious wall motion abnorm ality on the gated imaging. The grayscale images are more normal in appearance without significant pe rfusion defect. GATED STUDY: There is intact wall motion and thickening without hypokinetic or dyskinetic segments. CONCLUSION: 1. I believe there is significant artifact due to motion with perfusion abnormality seen on stress im aging anterior wall. 2. There is normal wall motion and ejection fraction. RISK CATEGORY: Low (<1% Annual Mortality Rate) Max Franklin MD on May 03, 2017 at 17:54 Board Certified Radiologist. This report was verified electronically.
[2017-05-03] MEDS ORDERED: LISINOPRIL PO SCH (21:00)
[2017-05-03] MEDS ORDERED: TOPIRAMATE 100 MG TAB PO SCH (21:00)
[2017-05-03] MEDS ORDERED: QUEtiapine FUMARATE 200 MG TAB PO SCH (21:00)
[2017-05-03] MEDS ORDERED: HYDROCHLOROTHIAZIDE 25 MG TAB PO SCH (21:00)
[2017-05-03] MEDS ORDERED: HYDROCHLOROTHIAZIDE PO SCH (21:00)
[2017-05-03] MEDS ORDERED: LISINOPRIL 20 MG TAB PO SCH (21:00)
[2017-05-03] MEDS ORDERED: [UNRECOGNIZED DRUG - OTHER] PO SCH (21:00)
--- NOTE | 2017-05-04 15:51 | EKG ---
Date Performed: 05/03/2017 Time Performed: 12:41:46 PTAGE: 46 years EKG: Sinus rhythm MODERATE INTRAVENTRICULAR CONDUCTION DELAY NONSPECIFIC T-WAVE ABNORMALITY BORDERLINE ECG NO SIG NEGRO GE PREVIOUS TRACING : 05/03/2017 09.21 DOCTOR: Clarence Cherry Interpretating Date/Time 05/04/2017 15:49:48
== END 2017-05-03 19:36 | disposition home or self-care (01) ==
LOC: NEPC 04:31 → NEDA 06:19 → NEDH 10:17 → NEPFCDU 11:04
PROVIDERS: ADMIT Internal Medicine Cardiovascular Disease; ATTEND Internal Medicine Cardiovascular Disease
DX: M62.82 Rhabdomyolysis (principal); R07.89 Other chest pain; R06.02 Shortness of breath; R42 Dizziness and giddiness; R11.2 Nausea with vomiting, unspecified; R51 Headache; R74.8 Abnormal levels of other serum enzymes; R94.31 Abnormal electrocardiogram [ECG] [EKG]; I10 Essential (primary) hypertension; I20.9 Angina pectoris, unspecified; R00.0 Tachycardia, unspecified; F31.9 Bipolar disorder, unspecified; G43.909 Migraine, unspecified, not intractable, without status migrainosus; Z79.899 Other long term (current) drug therapy; Z96.651 Presence of right artificial knee joint
CPT/HCPCS: 71045; 78452; 80053; 80061; 82550; 82552; 83036; 83690; 83735; 84484; 85025; 85610; 85730; 93005; 93017; 96361; 96374; 99285; A9502; G0378; J1885; J2785; J7030